=== PATIENT | male | born 1985 | race Caucasian/White ===

== ENCOUNTER 2023-03-30 08:35 | Emergency (ER) | payer OTHER, SELFPAY ==
[2023-03-30 08:54] VITALS: BP 153/73; PULSE 97; RESP 16; TEMP 36.6; O2SAT 100
--- NOTE | 2023-03-30 09:15 | ED.BACK ---
HPI - Back Pain/Injury General Chief Complaint: Back Pain/Injury Stated Complaint: Back pain Time Seen by Provider: 03/30/23 09:15 Source: patient, RN notes reviewed and old records reviewed Mode of arrival: ambulatory Limitations: no limitations History of Present Illness HPI Narrative: 37 year old male who [facility] with complaints of middle back pain on his right side which does radiate some to lateral right side after helping a friend move wood yesterday. He states that he was carrying a load of wood and felt some tightness bur continued to work the rest of the day. Patient reports that after getting in his truck to go home pain continued and was so bad he could hardly get out of truck. Patient reports that he couldn't sleep last night because of his pain.He has taken extra strength Tylenol with minimal improvement,can not take Ibuprofen due to stomach upset. MD elicited complaint: back pain Onset (ago): day(s) (day 2 of symptoms) Pain scale (0-10): 7 Quality: aching and other (tightness,soreness) Radiation: chest (right lateral) Treatments prior to arrival: acetaminophen Related Data Allergies Allergy/AdvReac Type Severity Reaction Status Date / Time ibuprofen AdvReac Gastrointestinal Verified 03/30/23 09:02 Upset Review of Systems Review of Systems: CONSTITUTIONAL: Denies fever, chills, or sweats. CARDIOVASCULAR: Denies chest pain, palpitations, or edema. RESPIRATORY: Denies cough or dyspnea, denies any pain with deep breathing GASTROINTESTINAL: Denies abdominal pain, nausea, vomiting, or diarrhea. GENITOURINARY: Denies dysuria or hematuria. SKIN: Denies rash or itching. MUSCULOSKELETAL: Reports right middle back pain which radiates to lateral chest area.or myalgia. NEUROLOGIC: Denies headache, numbness, or weakness. All systems reviewed & are unremarkable except as noted in HPI and below [facility] Past Medical History Medical History (Updated 03/31/23 @ 09:17 by Michelle Gutierrez NP) Fracture of left ankle Social History Social History (Updated 03/31/23 @ 09:13 by Michelle Gutierrez NP) Smoking status: Never smoker Alcohol intake: current Alcohol use details: social Substance use type: does not use Living arrangements: with family Gender identity (if verbalized by the patient): Male Comments At time of signature, agree with nursing past medical, surgical, social and family history. There is no relevant family history pertinent to the presenting complaint Exam Narrative: GENERAL: Well-appearing, well-nourished, and in no acute distress. HEAD: Normocephalic, atraumatic. EYES: PERRLA and EOMI. NECK: Supple. No lymphadenopathy. CHEST: Clear to auscultation. No respiratory distress. SAO2 100% on room air HEART: Regular rate and rhythm. Distal pulses palpable and equal, cap refill <3 seconds ABDOMEN: Soft, nontender, nondistended, normal active bowel sounds, no palpable or pulsatile masses. No CVA tenderness MUSCULOSKELETAL: Normal range of motion and strength in all extremities; 5/5 strength with hip flexion and extension, dorsiflexion and extension, knee flexion and extension, plantar flexion and extension. Normal sensation in dermatomal distributions with sensitivity to light touch and pain. No midline back tenderness to palpation. No paraspinal tenderness. Transfers from lying to sitting to standing, Positive for right thoracic back pain with some radiation to lateral side of chest.. SKIN: Warm, dry, no rash. No ecchymosis, erythema, open wounds to back. NEURO: No focal deficits. Alert and oriented x3. Reflexes intact. Normal gait. PSYCH: Normal mood and affect Course Course Emergency Course: Patient is aware of diagnosis, understands and agrees to treatment plan. Anticipatory guidance given. Patient agrees to follow-up as directed and is aware of reasons to seek care at the emergency department. Portions of this record may have been created with voice re
== END 2023-03-30 09:28 | disposition home or self-care (01) ==
PROVIDERS: Emergency Provider Registered Nurse
DX: S29.012A Strain of muscle and tendon of back wall of thorax, initial encounter (principal); X50.3XXA Overexertion from repetitive movements, initial encounter; Y93.E6 Activity, residential relocation
CPT/HCPCS: 99213; G0463